=== PATIENT | female | born 1965 | race Caucasian/White ===

== ENCOUNTER 2020-11-02 21:45 | Emergency (ER) | payer BC, OTHER ==
[~2020-11-02] VITALS: Ht 160 cm; Wt 49.9 kg
[2020-11-02 22:05] VITALS: BP 137/83
[2020-11-02] MEDS ORDERED: TDAP [DIPH/PERTUSSIS/TET] 0.5 ML VIAL IM ONE (23:57)
[2020-11-02] MEDS ORDERED: GELATIN SPONGE,ABSORBABLE 1 SPONGE SPONGE TP ONE (23:59)
[2020-11-03] MEDS ORDERED: CELLULOSE,OXIDIZED 1 PKT EACH MC ONE
[2020-11-03] MEDS ORDERED: TDAP [DIPH/PERTUSSIS/TET] 0.5 ML VIAL IM ONE
[2020-11-03] MEDS ORDERED: GELATIN SPONGE,ABSORBABLE 1 SPONGE SPONGE TP ONE (00:30)
== END 2020-11-03 00:13 | disposition home or self-care (01) ==
LOC: ER 21:47
DX: S61.411A Laceration without foreign body of right hand, initial encounter (principal); J45.909 Unspecified asthma, uncomplicated; Z88.1 Allergy status to other antibiotic agents; Z88.0 Allergy status to penicillin; W26.8XXA Contact with other sharp object(s), not elsewhere classified, initial encounter; Y93.89 Activity, other specified; Y92.89 Other specified places as the place of occurrence of the external cause; Y99.8 Other external cause status
CPT/HCPCS: 90715